=== PATIENT | female | born 1935 | race Caucasian/White ===

== ENCOUNTER → 2019-11-05 | Outpatient (CLI) | payer MEDICARE, BC ==
--- NOTE | 2019-11-05 18:30 | KCIC ---
EXAM: CHEST PA LATERAL INDICATION: Acute bronchitis. Evaluate for pneumonia.. TECHNIQUE: PA and lateral views COMPARISON: None FINDINGS: The heart size is upper normal. The great vessels appear unremarkable. There is no hilar or mediastinal mass. The lungs are clear. There is no pleural effusion or pneumothorax. There are no significant osseous abnormalities. IMPRESSION: No active cardiopulmonary disease. Electronically signed by: Laurie Hoffman MD (11/05/2019 6:27 PM) [facility]
== END | disposition home or self-care (01) ==
LOC: KCIC 11:55
PROVIDERS: ATTEND Family Medicine
DX: J20.9 Acute bronchitis, unspecified (principal)
CPT/HCPCS: 71046

== ENCOUNTER → 2022-01-19 | Outpatient (CLI) | payer MEDICARE, BC ==
--- NOTE | 2022-01-19 17:05 | KCIC ---
EXAM: XR CERVICAL SPINE 4-5V, XR SHOULDER_LEFT 2+ VIEWS, XR HUMERUS_LT 2 VIEWS 01/19/2022 3:08 PM CLINICAL INDICATION: Severe neck pain on the left side for one week. Left arm radicular pain, severe shoulder November abdominal pain for one week. COMPARISON: None FINDINGS: Cervical spine: 5 views were obtained. No acute fracture. Alignment is normal. There is moderate to s evere disc space narrowing at C3-C4 through C6-C7 with mild endplate sclerosis and small anterior ost eophytes. Probable right neuroforaminal narrowing at multiple levels. There is multilevel uncovertebr al joint proliferation and mild facet arthrosis. Dens is intact and symmetric and the ring of C1. Pre vertebral soft tissue is normal. Left shoulder: 3 views were obtained. No acute fracture. Alignment is normal. The glenohumeral and ac romioclavicular joints are maintained. The subacromial space is preserved. There is a calcified granu conchita in the left lung. Left humerus: 2 views were obtained. No acute fracture. Alignment is normal. No soft tissue abnormali ty. IMPRESSION: 1. 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 2. No acute osseous abnormality of the left shoulder or left humerus. Electronically signed by: Trinity Cunningham MD (01/19/2022 5:03 PM) [id number]
== END ==
LOC: KCIC 15:04
PROVIDERS: ATTEND Family Medicine
DX: M50.30 Other cervical disc degeneration, unspecified cervical region (principal); M47.22 Other spondylosis with radiculopathy, cervical region; M48.02 Spinal stenosis, cervical region; M25.78 Osteophyte, vertebrae; M25.512 Pain in left shoulder; J84.10 Pulmonary fibrosis, unspecified
CPT/HCPCS: 72050; 73030; 73060